=== PATIENT | female | born 1940 | race Caucasian/White ===

== ENCOUNTER 2019-08-12 18:46 | Inpatient (IN) | payer MEDICARE, MEDICAID ==
[~2019-08-12] VITALS: Ht 163.8 cm; Wt 65.0 kg
[~2019-08-12 18:46] MED LIST: ACET325T55 PO; ADV50250 IH; AMLO5TAB16 PO; ASPI1CPM9 PO; AZEL137S4 BOTHNARES; CARV-50 PO; LEVO100T46 PO; MONT10TA21 PO; MULT-785 PO; OXYB5TAB16 PO; PANT-47 PO; SIMV20TA5 PO; SUDAFED PE; ZOLP5TAB8 PO
[2019-08-12 19:32] LABS: BASOPHILS % (AUTO) 0.2 % (0-1); EOSINOPHILS # (AUTO) 0.1 X10'3 (0-0.9); EOSINOPHILS % (AUTO) 1.5 % (0-6); HEMATOCRIT 31.7 % (35.0-45.0); HEMOGLOBIN 10.4 g/dl (12.0-16.0); LYMPHOCYTES # (AUTO) 0.9 X10'3 (1.1-4.8); LYMPHOCYTES % (AUTO) 12.1 % (21-51); MEAN CORPUSCULAR HEMOGLOBIN 31.3 PG (27.0-31.0); MEAN CORPUSCULAR HGB CONC 32.8 g/dL (33.0-36.5); MEAN CORPUSCULAR VOLUME 95.3 FL (78-98); MEAN PLATELET VOLUME 8.5 FL (7.4-10.4); MONOCYTES # (AUTO) 0.6 X10'3 (0-0.9); MONOCYTES % (AUTO) 7.7 % (2-12); NEUTROPHILS # (AUTO) 6.1 X10'3 (1.8-7.7); NEUTROPHILS % (AUTO) 78.5 % (42-75); PLATELET COUNT 121 X10'3 (140-440); RED BLOOD COUNT 3.33 X10'6 (4.20-5.60); RED CELL DISTRIBUTION WIDTH 13.1 % (11.5-14.5); WHITE BLOOD COUNT 7.8 X10'3 (4.5-11.0)
[2019-08-12 19:50] LABS: ALANINE AMINOTRANSFERASE 21 U/L (12-78); ALBUMIN 3.2 G/DL (3.4-5.0); ALBUMIN/GLOBULIN RATIO 0.8 (1.1-1.5); ALKALINE PHOSPHATASE 69 IU/L (46-116); ANION GAP 16 (8-16); ASPARTATE AMINO TRANSFERASE 17 U/L (10-37); BILIRUBIN,TOTAL 0.3 MG/DL (0.1-1.0); BLOOD UREA NITROGEN 111 MG/DL (7-18); BUN/CREATININE RATIO 30.4 (6.6-38.0); CALCIUM 8.6 MG/DL (8.5-10.1); CHLORIDE 109 MMOL/L (99-107); CREATININE 3.65 MG/DL (0.40-0.90); GLUCOSE 103 MG/DL (70-104); POTASSIUM 4.2 MMOL/L (3.5-5.1); SODIUM 141 MMOL/L (135-145); TOTAL CARBON DIOXIDE 16.5 MMOL/L (24-32); eGFR 12 ML/MIN
[2019-08-12 20:17] LABS: CLARITY,URINE SLIGHTLY CLOUDY (Clear); COLOR,URINE YELLOW (Yellow); GLUCOSE, URINE NEGATIVE (Neg); KETONES,URINE NEGATIVE (Neg); LEUKOCYTE ESTERASE ,URINE SMALL (Neg); NITRITES, URINE NEGATIVE (Neg); OCCULT BLOOD,URINE NEGATIVE (Neg); PH,URINE 5.5 (4.8-8.0); PROTEIN,URINE NEGATIVE (Neg); UROBILINOGEN,URINE 0.2 E.U/dL (0.2-1.0)
[2019-08-12 20:18] LABS: UA COLLECTION TYPE STRAIGHT CATH
[2019-08-12] MEDS ORDERED: normal saline 1000ML IV soln IVB ONE (20:25)
[2019-08-12 20:29] LABS: BACTERIA,URINE 3+ /HPF (Neg); MUCUS STRANDS NONE SEEN /LPF (Neg); RBC,URINE NONE SEEN /HPF (0-2); SQUAMOUS EPITHELIAL CELL,UR FEW /LPF (FEW); WBC,URINE 30-50 /HPF (0-4)
[2019-08-12] MEDS ORDERED: SYN0.088T PO (22:21)
[2019-08-12] MEDS ORDERED: ASPI81TA52 PO (22:21)
[2019-08-12] MEDS ORDERED: FURO-149 PO (22:21)
[2019-08-12] MEDS ORDERED: LORA-512 PO (22:22)
[2019-08-12] MEDS ORDERED: LISI10TA PO (22:22)
[2019-08-12] MEDS ORDERED: DULA0.75 IM (22:22)
[2019-08-12] MEDS ORDERED: mag hydrox/Alum hydrox/simeth 30ml oral suspension PO PRN (22:25)
[2019-08-12] MEDS ORDERED: ondansetron/PF 4mg/2ml inj IV PRN (22:25)
[2019-08-12] MEDS ORDERED: magnesium hydroxide 30ml (MOM) UD suspension PO PRN (22:25)
[2019-08-12] MEDS ORDERED: acetaminophen 325mg tablet PO PRN ×2 (22:25→22:30)
[2019-08-12] MEDS ORDERED: MESSAGE TO PHARMACY PO ONE (22:30)
[2019-08-12] MEDS ORDERED: dextrose 50%-water 50ml dispensing syringe IV PRN ×2 (22:30)
[2019-08-12] MEDS ORDERED: insulin Lispro (HumaLOG) vial - multi-dose SQ SCH (22:30)
[2019-08-12] MEDS ORDERED: glucagon, human recombinant 1mg kit SUBCUT PRN (22:30)
[2019-08-12] MEDS ORDERED: dextrose ORAL solution 15 GM/59 ML bottle PO PRN ×2 (22:30)
[2019-08-12 22:47] LABS: HEMOGLOBIN A1C 5.4 % (4.5-6.2)
[2019-08-12 23:00] VITALS: BP 142/59
[2019-08-12] MEDS: normal saline 1000ml 1,000 ML IV SCH (23:00)
[2019-08-13] VITALS (7 sets, daily range): BP systolic 109–145; BP diastolic 46–60
[2019-08-13] MEDS: albuterol 2.5 MG/3 ML nebule NEB SCH ×4 (03:00→20:58)
[2019-08-13 05:49] LABS: BASOPHILS % (AUTO) 0.3 % (0-1); EOSINOPHILS # (AUTO) 0.2 X10'3 (0-0.9); EOSINOPHILS % (AUTO) 1.9 % (0-6); MONOCYTES # (AUTO) 0.6 X10'3 (0-0.9); RED CELL DISTRIBUTION WIDTH 13.4 % (11.5-14.5)
[2019-08-13 05:51] LABS: HEMATOCRIT 31.9 % (35.0-45.0); HEMOGLOBIN 10.6 g/dl (12.0-16.0); LYMPHOCYTES # (AUTO) 1.3 X10'3 (1.1-4.8); LYMPHOCYTES % (AUTO) 15.7 % (21-51); MEAN CORPUSCULAR HEMOGLOBIN 31.9 PG (27.0-31.0); MEAN CORPUSCULAR HGB CONC 33.3 g/dL (33.0-36.5); MEAN CORPUSCULAR VOLUME 95.8 FL (78-98); MEAN PLATELET VOLUME 9.2 FL (7.4-10.4); MONOCYTES % (AUTO) 6.9 % (2-12); NEUTROPHILS # (AUTO) 6.4 X10'3 (1.8-7.7); NEUTROPHILS % (AUTO) 75.2 % (42-75); PLATELET COUNT 106 X10'3 (140-440); RED BLOOD COUNT 3.33 X10'6 (4.20-5.60); WHITE BLOOD COUNT 8.6 X10'3 (4.5-11.0)
--- NOTE | 2019-08-13 06:45 | NUR ---
Patient in room PCU 3013. I have received report from JAK Ybarra and had the opportunity to ask questions and assume patient care.
[2019-08-13 06:49] LABS: ALANINE AMINOTRANSFERASE 20 U/L (12-78); ALBUMIN 2.9 G/DL (3.4-5.0); ALBUMIN/GLOBULIN RATIO 0.8 (1.1-1.5); ALKALINE PHOSPHATASE 66 IU/L (46-116); ANION GAP 18 (8-16); ASPARTATE AMINO TRANSFERASE 20 U/L (10-37); BILIRUBIN,TOTAL 0.3 MG/DL (0.1-1.0); BLOOD UREA NITROGEN 100 MG/DL (7-18); BUN/CREATININE RATIO 33.9 (6.6-38.0); CALCIUM 8.4 MG/DL (8.5-10.1); CHLORIDE 113 MMOL/L (99-107); CREATININE 2.95 MG/DL (0.40-0.90); GLUCOSE 99 MG/DL (70-104); POTASSIUM 4.5 MMOL/L (3.5-5.1); SODIUM 143 MMOL/L (135-145); TOTAL PROTEIN 6.5 G/DL (6.4-8.2); eGFR 15 ML/MIN
[2019-08-13 07:03] LABS: TOTAL CARBON DIOXIDE 12.1 MMOL/L (24-32)
--- NOTE | 2019-08-13 07:21 | NUR ---
*CRITICAL LAB* [facility] rm 3013A Co2 12.1 JAK Snider ext [phone] _ page to MONIQUE
[2019-08-13] MEDS: aspirin 81mg tablet.DR PO SCH (07:47)
[2019-08-13] MEDS: pantoprazole 40mg Tablet.DR PO SCH ×2 (07:47→20:23)
[2019-08-13] MEDS: oxybutynin 5mg tablet PO SCH ×2 (07:47→20:24)
[2019-08-13] MEDS: heparin, porcine 5000 units/ml vial SQ SCH ×2 (07:47→20:24)
[2019-08-13] MEDS: levoTHYROXINE 88mcg tablet PO SCH (07:47)
[2019-08-13] MEDS ORDERED: amLODIPine 5mg tablet PO SCH ×2 (08:00→10:00)
[2019-08-13] MEDS ORDERED: vancomycin 125mg/5ml ORAL solution 5ml UD bottle PO SCH (09:00)
[2019-08-13] MEDS: budesonide 0.5mg/2ml UD nebule IH SCH ×2 (09:53→20:57)
[2019-08-13] MEDS ORDERED: AMLO5TAB PO (09:57)
[2019-08-13] MEDS ORDERED: ADV50100 IH (09:58)
[2019-08-13] MEDS ORDERED: CYAN500T46 PO (12:22)
[2019-08-13] MEDS ORDERED: FERR325T28 PO (12:29)
[2019-08-13 13:03] LABS: C DIFF ANTIGEN NEGATIVE (NEGATIVE); C DIFF SPECIMEN=DIARRHEA? ACCEPTABLE; C DIFFICILE TOXINS A&B NEGATIVE (Neg)
--- NOTE | 2019-08-13 14:04 | NUR ---
[facility] Rm 3004 C-diff negative Agatha RN ext [phone] page to MONIQUE
[2019-08-13] MEDS: nystatin 15 GM powder TP SCH ×2 (14:42→20:23)
[2019-08-13] MEDS: levoFLOXACIN-Levaquin 500mg/D5 100 ML IV SCH (14:42)
[2019-08-13] MEDS ORDERED: metroNIDAZOLE 500mg tablet PO ONE (16:00)
--- NOTE | 2019-08-13 17:42 | NUR ---
RM 8012 Willie West do you want her to receive the Flagyl? Cdiff neg. Agatha ext #[phone] page to MONIQUE
--- NOTE | 2019-08-13 18:37 | NUR ---
Problems reprioritized. Patient report given, questions answered & plan of care reviewed with JAK Ybarra.
--- NOTE | 2019-08-13 18:40 | NUR ---
Dr Ybarra order a cdiff test and Flagyl 500 mg q 8hrs, order was put in and pharmacist called me and told me not to give the med until cidiff test was confirmed. She told me to hold flagyl and po vanco. I attempted to contact Dr Ybarra a couple of times to confirm if he wants the pt to have flagyl although the cidff is negative.
--- NOTE | 2019-08-13 18:49 | NUR ---
Patient in room PCU 3009. I have received report from Agatha BENEDICT, and had the opportunity to ask questions and assume patient care.
[2019-08-13] MEDS: metroNIDAZOLE 500mg tablet PO SCH (20:24)
[2019-08-13] MEDS ORDERED: insulin glargine (Lantus) pen - multi-dose SQ SCH (21:00)
[2019-08-13] MEDS ORDERED: atorvastatin 10mg tablet PO SCH (21:00)
[2019-08-13] MEDS: normal saline 1000ml 1,000 ML IV SCH (21:15)
[2019-08-14] MEDS: albuterol 2.5 MG/3 ML nebule NEB SCH ×2 (02:47→08:19)
[2019-08-14 03:00] VITALS: BP 101/60
[2019-08-14] MEDS: metroNIDAZOLE 500mg tablet PO SCH ×2 (04:26→08:07)
[2019-08-14 05:31] LABS: BASOPHILS % (AUTO) 0.4 % (0-1); EOSINOPHILS % (AUTO) 0.8 % (0-6); HEMATOCRIT 30.8 % (35.0-45.0); HEMOGLOBIN 10.2 g/dl (12.0-16.0); LYMPHOCYTES # (AUTO) 0.8 X10'3 (1.1-4.8); LYMPHOCYTES % (AUTO) 15.2 % (21-51); MEAN CORPUSCULAR HEMOGLOBIN 32.3 PG (27.0-31.0); MEAN CORPUSCULAR HGB CONC 33.2 g/dL (33.0-36.5); MEAN CORPUSCULAR VOLUME 97.2 FL (78-98); MEAN PLATELET VOLUME 8.9 FL (7.4-10.4); MONOCYTES # (AUTO) 0.6 X10'3 (0-0.9); MONOCYTES % (AUTO) 10.6 % (2-12); NEUTROPHILS # (AUTO) 4.1 X10'3 (1.8-7.7); PLATELET COUNT 93 X10'3 (140-440); RED BLOOD COUNT 3.17 X10'6 (4.20-5.60); RED CELL DISTRIBUTION WIDTH 13.5 % (11.5-14.5); WHITE BLOOD COUNT 5.6 X10'3 (4.5-11.0)
[2019-08-14 05:42] LABS: ALANINE AMINOTRANSFERASE 16 U/L (12-78); ALBUMIN 2.7 G/DL (3.4-5.0); ALBUMIN/GLOBULIN RATIO 0.8 (1.1-1.5); ALKALINE PHOSPHATASE 60 IU/L (46-116); ANION GAP 18 (8-16); ASPARTATE AMINO TRANSFERASE 20 U/L (10-37); BILIRUBIN,TOTAL 0.2 MG/DL (0.1-1.0); BLOOD UREA NITROGEN 82 MG/DL (7-18); BUN/CREATININE RATIO 33.2 (6.6-38.0); CALCIUM 7.9 MG/DL (8.5-10.1); CHLORIDE 117 MMOL/L (99-107); CREATININE 2.47 MG/DL (0.40-0.90); GLUCOSE 110 MG/DL (70-104); POTASSIUM 4.3 MMOL/L (3.5-5.1); SODIUM 147 MMOL/L (135-145); TOTAL PROTEIN 6.1 G/DL (6.4-8.2); eGFR 19 ML/MIN
[2019-08-14 06:00] VITALS: BP 126/44
[2019-08-14 06:23] LABS: TOTAL CARBON DIOXIDE 11.8 MMOL/L (24-32)
--- NOTE | 2019-08-14 06:53 | NUR ---
Patient in room PCU 3009. I have received report from Tate BENEDICT. and had the opportunity to ask questions and assume patient care.
--- NOTE | 2019-08-14 07:03 | NUR ---
Page to Dr. Ybarra Critical High CO2 level PAGER ID: [phone] MESSAGE: Pt. Brett Negro [id number] Critical High CO2 11.8 improved from CO2 on 08/13 and previous CO2 on 08/12.
[2019-08-14] MEDS: heparin, porcine 5000 units/ml vial SQ SCH (08:00)
[2019-08-14] MEDS: levoFLOXACIN-Levaquin 500mg/D5 100 ML IV SCH (08:05)
[2019-08-14] MEDS: oxybutynin 5mg tablet PO SCH (08:07)
[2019-08-14] MEDS: levoTHYROXINE 88mcg tablet PO SCH (08:07)
[2019-08-14] MEDS: aspirin 81mg tablet.DR PO SCH (08:07)
[2019-08-14] MEDS: pantoprazole 40mg Tablet.DR PO SCH (08:07)
[2019-08-14] MEDS ORDERED: METR500T PO (08:13)
[2019-08-14] MEDS ORDERED: CIPR250T4 PO (08:13)
[2019-08-14] MEDS: budesonide 0.5mg/2ml UD nebule IH SCH (08:19)
[2019-08-14] MEDS ORDERED: sodium bicarbonate (8.4%) inj. 100 MEQ in dextrose 5%-water 1,000 ML IV SCH (08:30)
[2019-08-14] MEDS: nystatin 15 GM powder TP SCH (08:41)
--- NOTE | 2019-08-14 08:42 | NUR ---
José Held: [facility]: Pt is Ambulatory and Platelets are 93.
== END 2019-08-14 12:15 | disposition home or self-care (01) | DRG 371 ==
LOC: ER 18:47 → PCU 3S 22:54
PROVIDERS: ADMIT Internal Medicine; ATTEND Internal Medicine
DX: A04.9 Bacterial intestinal infection, unspecified (principal); N17.0 Acute kidney failure with tubular necrosis; N17.9 Acute kidney failure, unspecified; N18.4 Chronic kidney disease, stage 4 (severe); E87.2 Acidosis; E86.0 Dehydration; D63.8 Anemia in other chronic diseases classified elsewhere; E03.9 Hypothyroidism, unspecified; E11.22 Type 2 diabetes mellitus with diabetic chronic kidney disease; E78.5 Hyperlipidemia, unspecified; I12.9 Hypertensive chronic kidney disease with stage 1 through stage 4 chronic kidney disease, or unspecified chronic kidney disease; I95.9 Hypotension, unspecified; R63.4 Abnormal weight loss; J44.9 Chronic obstructive pulmonary disease, unspecified; Z86.73 Personal history of transient ischemic attack (TIA), and cerebral infarction without residual deficits; Z79.899 Other long term (current) drug therapy; Z68.24 Body mass index [BMI] 24.0-24.9, adult; Z88.0 Allergy status to penicillin; Z88.2 Allergy status to sulfonamides
CPT/HCPCS: 36415; 80053; 81001; 82948; 83036; 85025; 85610; 87077; 87081; 87088; 87186; 87324; 87449; 94640; 94760; 96360; 99285; G0378; J1644; J1815; J1956; J3490; J7030; J7626

== ENCOUNTER 2020-03-27 18:23 | Emergency (ER) | payer MEDICARE, MEDICAID ==
[~2020-03-27] VITALS: Ht 162.6 cm; Wt 60.9 kg
[~2020-03-27 18:23] MED LIST changes: -ACET325T55 PO; +ADV50100 IH; -ADV50250 IH; +ALBU18HF2 INH; +AMLO5TAB PO; -AMLO5TAB16 PO; -ASPI1CPM9 PO; -AZEL137S4 BOTHNARES; -CARV-50 PO; +CYAN500T46 PO; +FERR325T28 PO; +FURO40TA4 PO; -LEVO100T46 PO; +LEVO500T2 PO; +LISI10TA PO; +LORA-512 PO; -MONT10TA21 PO; +SIMV-42 PO; -SIMV20TA5 PO; -SUDAFED PE; +SYN0.088T PO; -ZOLP5TAB8 PO
[2020-03-27 19:15] VITALS: BP 110/48
[2020-03-27] MEDS ORDERED: bacitracin 15gm ointment TP ONE (19:40)
== END 2020-03-27 21:11 | disposition home or self-care (01) ==
LOC: ER 18:24
DX: R60.0 Localized edema (principal); I12.9 Hypertensive chronic kidney disease with stage 1 through stage 4 chronic kidney disease, or unspecified chronic kidney disease; J44.9 Chronic obstructive pulmonary disease, unspecified; N18.9 Chronic kidney disease, unspecified; E11.22 Type 2 diabetes mellitus with diabetic chronic kidney disease; E03.9 Hypothyroidism, unspecified; Z88.0 Allergy status to penicillin; Z86.73 Personal history of transient ischemic attack (TIA), and cerebral infarction without residual deficits; Z88.2 Allergy status to sulfonamides; Z79.2 Long term (current) use of antibiotics; Z79.899 Other long term (current) drug therapy
CPT/HCPCS: 99284

== ENCOUNTER 2020-04-02 13:51 | Inpatient (IN) | payer MEDICARE, MEDICAID ==
[~2020-04-02] VITALS: Ht 149.9 cm; Wt 60.9 kg
--- NOTE | 2020-04-02 15:28 | NUR ---
pt has small dialysis graft/fistula noted to GEOFFREY, +thrill and +bruit.
[2020-04-02 16:03] LABS: BASOPHILS % (AUTO) 0.6 % (0-1); EOSINOPHILS # (AUTO) 0.1 X10'3 (0-0.9); EOSINOPHILS % (AUTO) 1.7 % (0-6); HEMATOCRIT 28.6 % (35.0-45.0); HEMOGLOBIN 9.4 g/dl (12.0-16.0); LYMPHOCYTES # (AUTO) 0.7 X10'3 (1.1-4.8); MEAN CORPUSCULAR HEMOGLOBIN 32.9 PG (27.0-31.0); MEAN CORPUSCULAR HGB CONC 32.7 g/dL (33.0-36.5); MEAN CORPUSCULAR VOLUME 100.6 FL (78-98); MONOCYTES # (AUTO) 0.5 X10'3 (0-0.9); MONOCYTES % (AUTO) 6.6 % (2-12); NEUTROPHILS # (AUTO) 5.7 X10'3 (1.8-7.7); NEUTROPHILS % (AUTO) 81.1 % (42-75); PLATELET COUNT 126 X10'3 (140-440); RED BLOOD COUNT 2.84 X10'6 (4.20-5.60); RED CELL DISTRIBUTION WIDTH 14.9 % (11.5-14.5)
[2020-04-02 16:09] LABS: ANION GAP 14 (8-16); BILIRUBIN,TOTAL 0.5 MG/DL (0.1-1.0); BLOOD UREA NITROGEN 106 MG/DL (7-18); BUN/CREATININE RATIO 31.7 (6.6-38.0); CALCIUM 8.6 MG/DL (8.5-10.1); CHLORIDE 104 MMOL/L (99-107); CREATININE 3.34 MG/DL (0.40-0.90); GLUCOSE 106 MG/DL (70-104); POTASSIUM 4.9 MMOL/L (3.5-5.1); SODIUM 138 MMOL/L (135-145); TOTAL CARBON DIOXIDE 20.2 MMOL/L (24-32); TOTAL PROTEIN 6.6 G/DL (6.4-8.2); eGFR 13 ML/MIN
[2020-04-02 16:10] LABS: ALANINE AMINOTRANSFERASE 14 U/L (12-78); ALBUMIN 3.3 G/DL (3.4-5.0); ALKALINE PHOSPHATASE 44 IU/L (46-116); ASPARTATE AMINO TRANSFERASE 16 U/L (10-37)
[2020-04-02 16:17] LABS: MAGNESIUM 2.1 MG/DL (1.5-2.4); PHOSPHORUS 6.7 MG/DL (2.3-4.5)
[2020-04-02] MEDS ORDERED: TRAZ-251 PO (17:10)
[2020-04-02] MEDS ORDERED: ASPI-611 PO (17:10)
[2020-04-02] MEDS ORDERED: ZAR5T PO (17:10)
[2020-04-02] MEDS ORDERED: LACT1CAP65 PO (17:10)
[2020-04-02] MEDS ORDERED: OMEP40CA13 PO (17:10)
[2020-04-02] MEDS ORDERED: IRON18TA PO (17:10)
[2020-04-02] MEDS ORDERED: acetaminophen 325mg tablet PO PRN ×2 (17:20)
[2020-04-02] MEDS ORDERED: ondansetron/PF 4mg/2ml inj IV PRN (17:20)
[2020-04-02] MEDS ORDERED: albuterol 2.5 MG/3 ML nebule NEB PRN (17:25)
--- NOTE | 2020-04-02 17:29 | NUR ---
patient is a hard stick,attempted to start piv to right wrist by 3 nurses-unsuccessful,Lashaun barrett RN made aware.
--- NOTE | 2020-04-02 17:40 | NUR ---
Dr. Angel aware that patient does not have piv at this time,Md ordered no iv for now.
--- NOTE | 2020-04-02 18:25 | NUR ---
per dr. sheffield at bedside, ok to send pt to the floor with no iv. multiple attempts without success and limited access areas.
--- NOTE | 2020-04-02 18:40 | NUR ---
Patient in room PCU 3017. I have received report from JAK Payne and had the opportunity to ask questions and assume patient care.
[2020-04-02 19:00] VITALS: BP 117/47
[2020-04-02] MEDS: traZODone 50mg tablet PO SCH (20:21)
[2020-04-02] MEDS: lactobacillus rhamnosus 10,000 MMU CELLS/CAPSULE PO SCH (20:21)
[2020-04-02] MEDS: budesonide 0.5mg/2ml UD nebule IH SCH (21:07)
[2020-04-02 22:00] VITALS: BP 97/67
[2020-04-03 02:00] VITALS: BP 116/51
[2020-04-03 06:00] VITALS: BP 102/49
[2020-04-03 06:00] LABS: BASOPHILS % (AUTO) 0.9 % (0-1); EOSINOPHILS # (AUTO) 0.2 X10'3 (0-0.9); EOSINOPHILS % (AUTO) 3.2 % (0-6); HEMATOCRIT 25.6 % (35.0-45.0); HEMOGLOBIN 8.4 g/dl (12.0-16.0); LYMPHOCYTES # (AUTO) 0.8 X10'3 (1.1-4.8); LYMPHOCYTES % (AUTO) 15.7 % (21-51); MEAN CORPUSCULAR HEMOGLOBIN 32.8 PG (27.0-31.0); MEAN CORPUSCULAR HGB CONC 32.8 g/dL (33.0-36.5); MEAN CORPUSCULAR VOLUME 100.1 FL (78-98); MEAN PLATELET VOLUME 10.2 FL (7.4-10.4); MONOCYTES # (AUTO) 0.4 X10'3 (0-0.9); MONOCYTES % (AUTO) 8.1 % (2-12); NEUTROPHILS # (AUTO) 3.7 X10'3 (1.8-7.7); NEUTROPHILS % (AUTO) 72.1 % (42-75); PLATELET COUNT 95 X10'3 (140-440); RED BLOOD COUNT 2.55 X10'6 (4.20-5.60); RED CELL DISTRIBUTION WIDTH 15.1 % (11.5-14.5); WHITE BLOOD COUNT 5.1 X10'3 (4.5-11.0)
[2020-04-03 06:15] LABS: ALANINE AMINOTRANSFERASE 14 U/L (12-78); ALBUMIN/GLOBULIN RATIO 1.1 (1.1-1.5); ALKALINE PHOSPHATASE 41 IU/L (46-116); ANION GAP 13 (8-16); ASPARTATE AMINO TRANSFERASE 14 U/L (10-37); BILIRUBIN,TOTAL 0.4 MG/DL (0.1-1.0); BLOOD UREA NITROGEN 108 MG/DL (7-18); BUN/CREATININE RATIO 30.9 (6.6-38.0); CALCIUM 8.1 MG/DL (8.5-10.1); CHLORIDE 107 MMOL/L (99-107); CREATININE 3.49 MG/DL (0.40-0.90); GLUCOSE 127 MG/DL (70-104); MAGNESIUM 2.1 MG/DL (1.5-2.4); PHOSPHORUS 7.2 MG/DL (2.3-4.5); POTASSIUM 4.4 MMOL/L (3.5-5.1); SODIUM 141 MMOL/L (135-145); TOTAL PROTEIN 5.8 G/DL (6.4-8.2); eGFR 13 ML/MIN
--- NOTE | 2020-04-03 06:30 | NUR ---
Patient in room PCU 3017. I have received report from ROSINA RAMSEY and had the opportunity to ask questions and assume patient care.
--- NOTE | 2020-04-03 06:47 | NUR ---
Problems reprioritized. Patient report given, questions answered & plan of care reviewed with JAK Palafox.
[2020-04-03] MEDS: pantoprazole 40mg Tablet.DR PO SCH (08:52)
[2020-04-03] MEDS: ferrous sulfate 325mg tablet PO SCH (08:53)
[2020-04-03] MEDS: aspirin 81mg tablet.DR PO SCH (08:53)
[2020-04-03] MEDS: lactobacillus rhamnosus 10,000 MMU CELLS/CAPSULE PO SCH ×2 (08:53→20:48)
[2020-04-03] MEDS: furosemide 40mg tablet PO SCH (08:54)
[2020-04-03] MEDS: multivitamins, therapeutics tablet PO SCH (08:54)
[2020-04-03] MEDS: amLODIPine 5mg tablet PO SCH (08:54)
[2020-04-03] MEDS: levoTHYROXINE 88mcg tablet PO SCH (08:54)
[2020-04-03] MEDS: cyanocobalamin 500mcg tablet PO SCH (08:55)
[2020-04-03] MEDS: metolazone 2.5mg tablet PO SCH (08:55)
[2020-04-03] MEDS: lisinopril 10 MG tablet PO SCH (08:56)
[2020-04-03] MEDS ORDERED: FLU VACC QS2019-20 36MOS UP/PF 60 MCG/0.5 ML SYRINGE IMVAC ONE (10:00)
[2020-04-03] MEDS ORDERED: normal saline 1000ml 100 ML IV PRN (10:29)
[2020-04-03] MEDS ORDERED: normal saline 1000ml 250 ML IV PRN (10:29)
[2020-04-03] MEDS ORDERED: LIDOcaine 1% (10mg/ml) 2ml vial SQ ONE (10:30)
[2020-04-03] MEDS ORDERED: epoetin 20,000 units/ml inj IV ONE (10:30)
[2020-04-03] MEDS: budesonide 0.5mg/2ml UD nebule IH SCH ×2 (10:51→19:57)
[2020-04-03 11:00] VITALS: BP 95/37
--- NOTE | 2020-04-03 12:57 | NUR ---
Malnutrition consult: Pt admit w/ increased BLE swelling reported 16 pound wt gain hx CKD and needing emergent HD per MD. Pt has no significant weakness noted, BLE 2+ pitting edema though to change given fluid status/HD, PO 50% first meal this AM w/ 69kg chair scale wt this admit. Pt prior wts all pt stated and current wt likely higher than actual dry wt given positive fluid status. BMI 31 given current wt w/ pt stated wts fluctuating 61-65kg prior admits past 6 months. At this time pt does not meet minimum malnutrition criteria; will continue to monitor. Addendum: 04/03/20 at [address] Amended: Links added.
[2020-04-03 15:00] VITALS: BP 95/37
[2020-04-03 18:00] VITALS: BP 118/49
--- NOTE | 2020-04-03 18:43 | NUR ---
Patient in room PCU 3017. I have received report from Javy BENEDICT and had the opportunity to ask questions and assume patient care.
--- NOTE | 2020-04-03 18:43 | NUR ---
Problems reprioritized. Patient report given, questions answered & plan of care reviewed with JAK ALLAN.
[2020-04-03] MEDS: traZODone 50mg tablet PO SCH (20:48)
[2020-04-03 22:00] VITALS: BP 105/43
[2020-04-04] VITALS (9 sets, daily range): BP systolic 88–112; BP diastolic 42–62
[2020-04-04 05:56] LABS: HEMOGLOBIN 8.7 g/dl (12.0-16.0); PLATELET COUNT 110 X10'3 (140-440); WHITE BLOOD COUNT 4.4 X10'3 (4.5-11.0)
[2020-04-04 05:59] LABS: BASOPHILS % (AUTO) 0.8 % (0-1); EOSINOPHILS # (AUTO) 0.2 X10'3 (0-0.9); HEMATOCRIT 26.3 % (35.0-45.0); LYMPHOCYTES # (AUTO) 0.9 X10'3 (1.1-4.8); LYMPHOCYTES % (AUTO) 19.7 % (21-51); MEAN CORPUSCULAR HEMOGLOBIN 33.3 PG (27.0-31.0); MEAN CORPUSCULAR VOLUME 100.7 FL (78-98); MEAN PLATELET VOLUME 9.6 FL (7.4-10.4); MONOCYTES # (AUTO) 0.4 X10'3 (0-0.9); NEUTROPHILS % (AUTO) 67.5 % (42-75); RED BLOOD COUNT 2.61 X10'6 (4.20-5.60); RED CELL DISTRIBUTION WIDTH 14.9 % (11.5-14.5)
--- NOTE | 2020-04-04 06:10 | NUR ---
Patient in room PCU 3017. I have received report from JAK Lal and had the opportunity to ask questions and assume patient care.
--- NOTE | 2020-04-04 06:12 | NUR ---
Problems reprioritized. Patient report given, questions answered & plan of care reviewed with Jo BENEDICT.
[2020-04-04 06:21] LABS: ALANINE AMINOTRANSFERASE 12 U/L (12-78); ALBUMIN 2.9 G/DL (3.4-5.0); ALKALINE PHOSPHATASE 37 IU/L (46-116); ANION GAP 13 (8-16); ASPARTATE AMINO TRANSFERASE 12 U/L (10-37); BILIRUBIN,TOTAL 0.4 MG/DL (0.1-1.0); BLOOD UREA NITROGEN 108 MG/DL (7-18); CALCIUM 8.1 MG/DL (8.5-10.1); CHLORIDE 109 MMOL/L (99-107); CREATININE 3.38 MG/DL (0.40-0.90); GLUCOSE 89 MG/DL (70-104); MAGNESIUM 2.2 MG/DL (1.5-2.4); PHOSPHORUS 6.9 MG/DL (2.3-4.5); POTASSIUM 4.2 MMOL/L (3.5-5.1); SODIUM 143 MMOL/L (135-145); TOTAL CARBON DIOXIDE 21.2 MMOL/L (24-32); TOTAL PROTEIN 5.9 G/DL (6.4-8.2); eGFR 13 ML/MIN
[2020-04-04] MEDS: lisinopril 10 MG tablet PO SCH (08:00)
[2020-04-04] MEDS ORDERED: normal saline 1000ml 100 ML IV PRN (08:00)
[2020-04-04] MEDS ORDERED: albumin (human) 25% 100ml IV 100 ML IV PRN (08:00)
[2020-04-04] MEDS: amLODIPine 5mg tablet PO SCH (08:00)
[2020-04-04] MEDS ORDERED: nystatin 15 GM ointment TP SCH (08:00)
[2020-04-04] MEDS ORDERED: LIDOcaine 1% (10mg/ml) 2ml vial SQ ONE (08:00)
[2020-04-04] MEDS: aspirin 81mg tablet.DR PO SCH (08:00)
[2020-04-04] MEDS ORDERED: heparin 1,000 units/ml 10ml inj IV ONE ×4 (08:00→10:20)
[2020-04-04] MEDS ORDERED: epoetin 20,000 units/ml inj IV ONE ×2 (08:00)
[2020-04-04] MEDS: furosemide 40mg tablet PO SCH (08:00)
[2020-04-04] MEDS ORDERED: heparin 1,000 units/ml 10ml inj HE ONE ×5 (08:00→10:20)
[2020-04-04] MEDS ORDERED: normal saline 1000ml 250 ML IV PRN ×3 (08:00)
[2020-04-04] MEDS: lactobacillus rhamnosus 10,000 MMU CELLS/CAPSULE PO SCH ×2 (08:13→20:27)
[2020-04-04] MEDS: levoTHYROXINE 88mcg tablet PO SCH (08:14)
[2020-04-04] MEDS: pantoprazole 40mg Tablet.DR PO SCH (08:15)
[2020-04-04] MEDS: multivitamins, therapeutics tablet PO SCH (08:15)
[2020-04-04] MEDS: ferrous sulfate 325mg tablet PO SCH (08:16)
[2020-04-04] MEDS: cyanocobalamin 500mcg tablet PO SCH (08:19)
[2020-04-04] MEDS: metolazone 2.5mg tablet PO SCH (08:45)
[2020-04-04] MEDS: budesonide 0.5mg/2ml UD nebule IH SCH ×2 (08:52→19:54)
[2020-04-04] MEDS ORDERED: LIDOcaine 1%/PF 5ML 10 MG/ML VIAL ONE (10:56)
[2020-04-04] MEDS ORDERED: fentaNYL/PF 50MCG/1 ML 2ML syringe ONE (10:56)
[2020-04-04] MEDS ORDERED: heparin 1,000unit/ml 10ml vial 10 ML ONE (10:56)
[2020-04-04] MEDS ORDERED: midazolam 2 mg/2 ml injection ONE (10:56)
--- NOTE | 2020-04-04 11:05 | NUR ---
Patient left with staff from [facility] to go have TDC placed. Patient alert and oriented and in stable condition when she left.
--- NOTE | 2020-04-04 11:45 | NUR ---
Patient came back to PCU on tam bed. I received report from Lety Riggs RN that patient received only local anesthetic during the placement of the TDC to the right chest. Patient was alert and oriented when she arrived back to PCU. I noted placement of the TDC. It was intact and no problems.
--- NOTE | 2020-04-04 18:30 | NUR ---
Problems reprioritized. Patient report given, questions answered & plan of care reviewed with JAK Slaughter. During bedside report I flushed the patient's new 20G PIV that was placed by the PICC nurse this morning. The patient had complained that it was bothering her. When I flushed it during bedside report the patient stated that it was not causing her any pain and it flushed adequately.
--- NOTE | 2020-04-04 18:30 | NUR ---
Patient in room PCU 3017. I have received report from Stephany BENEDICT and had the opportunity to ask questions and assume patient care.
[2020-04-04] MEDS: nystatin 15 GM powder TP SCH (20:27)
[2020-04-04] MEDS: traZODone 50mg tablet PO SCH (20:27)
[2020-04-05 02:00] VITALS: BP 99/49
--- NOTE | 2020-04-05 05:19 | NUR ---
[place] documentation: I have reviewed and agree with all interventions, meds given, assessments performed and documented by Winsome BENEDICT.
[2020-04-05 06:00] VITALS: BP 119/86
--- NOTE | 2020-04-05 06:00 | NUR ---
Problems reprioritized. Patient report given, questions answered & plan of care reviewed with Crystal BENEDICT [].
--- NOTE | 2020-04-05 06:15 | NUR ---
Problems reprioritized. Patient report given, questions answered & plan of care reviewed with Crystal BENEDICT.
--- NOTE | 2020-04-05 06:29 | NUR ---
Patient in room PCU 3017. I have received report from JAK Slaughter and had the opportunity to ask questions and assume patient care.
[2020-04-05 06:41] LABS: BASOPHILS % (AUTO) 0.6 % (0-1); EOSINOPHILS # (AUTO) 0.1 X10'3 (0-0.9); EOSINOPHILS % (AUTO) 1.8 % (0-6); HEMATOCRIT 29.6 % (35.0-45.0); HEMOGLOBIN 9.6 g/dl (12.0-16.0); LYMPHOCYTES # (AUTO) 0.7 X10'3 (1.1-4.8); LYMPHOCYTES % (AUTO) 13.9 % (21-51); MEAN CORPUSCULAR HEMOGLOBIN 32.2 PG (27.0-31.0); MEAN CORPUSCULAR HGB CONC 32.4 g/dL (33.0-36.5); MEAN CORPUSCULAR VOLUME 99.4 FL (78-98); MEAN PLATELET VOLUME 8.9 FL (7.4-10.4); MONOCYTES # (AUTO) 0.5 X10'3 (0-0.9); MONOCYTES % (AUTO) 9.8 % (2-12); NEUTROPHILS # (AUTO) 3.9 X10'3 (1.8-7.7); NEUTROPHILS % (AUTO) 73.9 % (42-75); PLATELET COUNT 122 X10'3 (140-440); RED BLOOD COUNT 2.98 X10'6 (4.20-5.60); RED CELL DISTRIBUTION WIDTH 14.9 % (11.5-14.5); WHITE BLOOD COUNT 5.3 X10'3 (4.5-11.0)
[2020-04-05 06:51] LABS: ALANINE AMINOTRANSFERASE 11 U/L (12-78); ALBUMIN 3.1 G/DL (3.4-5.0); ALKALINE PHOSPHATASE 43 IU/L (46-116); ANION GAP 8 (8-16); ASPARTATE AMINO TRANSFERASE 14 U/L (10-37); BILIRUBIN,TOTAL 0.6 MG/DL (0.1-1.0); BLOOD UREA NITROGEN 60 MG/DL (7-18); BUN/CREATININE RATIO 25.8 (6.6-38.0); CALCIUM 8.2 MG/DL (8.5-10.1); CHLORIDE 107 MMOL/L (99-107); CREATININE 2.33 MG/DL (0.40-0.90); GLUCOSE 82 MG/DL (70-104); PHOSPHORUS 4.4 MG/DL (2.3-4.5); POTASSIUM 3.7 MMOL/L (3.5-5.1); SODIUM 142 MMOL/L (135-145); TOTAL CARBON DIOXIDE 27.5 MMOL/L (24-32); TOTAL PROTEIN 6.2 G/DL (6.4-8.2); eGFR 20 ML/MIN
[2020-04-05] MEDS: budesonide 0.5mg/2ml UD nebule IH SCH ×2 (07:14→19:40)
[2020-04-05] MEDS: pantoprazole 40mg Tablet.DR PO SCH (07:57)
[2020-04-05] MEDS: ferrous sulfate 325mg tablet PO SCH (07:57)
[2020-04-05] MEDS: aspirin 81mg tablet.DR PO SCH (07:57)
[2020-04-05] MEDS: metolazone 2.5mg tablet PO SCH (07:57)
[2020-04-05] MEDS: amLODIPine 5mg tablet PO SCH (07:57)
[2020-04-05] MEDS: cyanocobalamin 500mcg tablet PO SCH (07:57)
[2020-04-05] MEDS: furosemide 40mg tablet PO SCH (07:57)
[2020-04-05] MEDS: levoTHYROXINE 88mcg tablet PO SCH (07:57)
[2020-04-05] MEDS: lisinopril 10 MG tablet PO SCH (07:58)
[2020-04-05] MEDS: multivitamins, therapeutics tablet PO SCH (07:58)
[2020-04-05] MEDS ORDERED: epoetin 20,000 units/ml inj IV ONE (08:00)
[2020-04-05] MEDS ORDERED: normal saline 1000ml 250 ML IV PRN (08:00)
[2020-04-05] MEDS ORDERED: heparin 1,000 units/ml 10ml inj HE ONE ×2 (08:00)
[2020-04-05] MEDS ORDERED: heparin 1,000unit/ml 10ml vial 10 ML IV ONE (08:00)
[2020-04-05] MEDS: lactobacillus rhamnosus 10,000 MMU CELLS/CAPSULE PO SCH ×2 (08:01→20:22)
[2020-04-05 08:09] LABS: HBSAG SCREEN Negative (Negative)
[2020-04-05] MEDS: nystatin 15 GM powder TP SCH ×3 (11:17→20:24)
[2020-04-05 15:00] VITALS: BP 104/40
--- NOTE | 2020-04-05 18:31 | NUR ---
Patient in room PCU 3017. I have received report from Crystal BENEDICT and had the opportunity to ask questions and assume patient care.
[2020-04-05 19:00] VITALS: BP 109/48
[2020-04-05] MEDS: traZODone 50mg tablet PO SCH (20:22)
[2020-04-05 22:37] VITALS: BP 96/40
[2020-04-06 06:00] VITALS: BP 87/42
--- NOTE | 2020-04-06 06:22 | NUR ---
Problems reprioritized. Patient report given, questions answered & plan of care reviewed with Doretha AND ALFREDO rns.
--- NOTE | 2020-04-06 06:34 | NUR ---
Patient in room PCU 3017. I have received report from JAK Slaughter and had the opportunity to ask questions and assume patient care. Pt resting comfortably.
[2020-04-06 06:35] LABS: BASOPHILS % (AUTO) 0.8 % (0-1); EOSINOPHILS # (AUTO) 0.1 X10'3 (0-0.9); HEMATOCRIT 29.4 % (35.0-45.0); HEMOGLOBIN 9.6 g/dl (12.0-16.0); LYMPHOCYTES # (AUTO) 1.1 X10'3 (1.1-4.8); LYMPHOCYTES % (AUTO) 18.9 % (21-51); MEAN CORPUSCULAR HEMOGLOBIN 32.3 PG (27.0-31.0); MEAN CORPUSCULAR HGB CONC 32.4 g/dL (33.0-36.5); MEAN CORPUSCULAR VOLUME 99.6 FL (78-98); MEAN PLATELET VOLUME 9.5 FL (7.4-10.4); MONOCYTES # (AUTO) 0.7 X10'3 (0-0.9); MONOCYTES % (AUTO) 11.4 % (2-12); NEUTROPHILS # (AUTO) 3.9 X10'3 (1.8-7.7); NEUTROPHILS % (AUTO) 66.9 % (42-75); PLATELET COUNT 118 X10'3 (140-440); RED BLOOD COUNT 2.96 X10'6 (4.20-5.60); RED CELL DISTRIBUTION WIDTH 14.8 % (11.5-14.5); WHITE BLOOD COUNT 5.8 X10'3 (4.5-11.0)
--- NOTE | 2020-04-06 06:35 | NUR ---
Patient in room U 3017. I have received report from Loan BENEDICT and Winsome BENEDICT and had the opportunity to ask questions and assume patient care. Addendum: 04/06/20 at 0641 by Kimberly Mejia RN report from Kasandra BENEDICT
[2020-04-06 06:58] LABS: ALANINE AMINOTRANSFERASE 11 U/L (12-78); ALBUMIN/GLOBULIN RATIO 0.9 (1.1-1.5); ALKALINE PHOSPHATASE 43 IU/L (46-116); ANION GAP 11 (8-16); ASPARTATE AMINO TRANSFERASE 12 U/L (10-37); BILIRUBIN,TOTAL 0.7 MG/DL (0.1-1.0); BLOOD UREA NITROGEN 30 MG/DL (7-18); BUN/CREATININE RATIO 16.5 (6.6-38.0); CALCIUM 8.4 MG/DL (8.5-10.1); CHLORIDE 105 MMOL/L (99-107); CREATININE 1.82 MG/DL (0.40-0.90); GLUCOSE 80 MG/DL (70-104); MAGNESIUM 1.9 MG/DL (1.5-2.4); PHOSPHORUS 3.3 MG/DL (2.3-4.5); POTASSIUM 3.6 MMOL/L (3.5-5.1); SODIUM 142 MMOL/L (135-145); TOTAL CARBON DIOXIDE 26.5 MMOL/L (24-32); TOTAL PROTEIN 6.2 G/DL (6.4-8.2); eGFR 27 ML/MIN
[2020-04-06] MEDS ORDERED: epoetin 20,000 units/ml inj IV ONE (08:00)
[2020-04-06] MEDS ORDERED: normal saline 1000ml 250 ML IV PRN (08:00)
[2020-04-06] MEDS: furosemide 40mg tablet PO SCH (08:00)
[2020-04-06] MEDS ORDERED: heparin 1,000 units/ml 10ml inj HE ONE ×2 (08:00)
[2020-04-06] MEDS: lisinopril 10 MG tablet PO SCH (08:00)
[2020-04-06] MEDS: metolazone 2.5mg tablet PO SCH (08:00)
[2020-04-06] MEDS ORDERED: heparin 1,000unit/ml 10ml vial 10 ML IV ONE (08:00)
[2020-04-06] MEDS: budesonide 0.5mg/2ml UD nebule IH SCH ×2 (08:21→19:06)
[2020-04-06] MEDS: aspirin 81mg tablet.DR PO SCH (08:48)
[2020-04-06] MEDS: multivitamins, therapeutics tablet PO SCH (08:48)
[2020-04-06] MEDS: cyanocobalamin 500mcg tablet PO SCH (08:48)
[2020-04-06] MEDS: levoTHYROXINE 88mcg tablet PO SCH (08:48)
[2020-04-06] MEDS: lactobacillus rhamnosus 10,000 MMU CELLS/CAPSULE PO SCH (08:48)
[2020-04-06] MEDS: amLODIPine 5mg tablet PO SCH (08:56)
[2020-04-06] MEDS: ferrous sulfate 325mg tablet PO SCH (08:56)
[2020-04-06] MEDS: nystatin 15 GM powder TP SCH ×2 (09:01→13:37)
[2020-04-06] MEDS: pantoprazole 40mg Tablet.DR PO SCH (09:05)
[2020-04-06 11:00] VITALS: BP 95/30
[2020-04-06 11:10] LABS: HEP B CORE AB, TOT Negative (Negative)
[2020-04-06] MEDS ORDERED: FOLI0.8C PO (13:40)
[2020-04-06] MEDS ORDERED: FOLI0.8T19 PO (13:40)
--- NOTE | 2020-04-06 14:11 | NUR ---
Initial: Pt admit w/ ESRD, fluid overload s/p second HD today per . Pt PO increased from admit initial 25-50% renal diet first day now 65-75% avg meals. LBM 04/04. MCV 99.6 receiving B12 and MVI. Will continue to monitor for additional protein needs on HD. Rec: 1. continue renal diet 2. monitor for ONS needs 3. bowel regularity 4. wts w/ HD Addendum: 04/06/20 at [address] Amended: Links added.
[2020-04-06 15:00] VITALS: BP 108/49
--- NOTE | 2020-04-06 18:39 | NUR ---
[place]ee documentation: I have reviewed and agree with all interventions, assessments performed and documented by JAK Harris.
--- NOTE | 2020-04-06 18:40 | NUR ---
[place] Medication Administration: For this medication-pass time frame, all medication were reviewed, dispensed, administered and documented per hospital policy by JAK Harris.
--- NOTE | 2020-04-06 18:40 | NUR ---
Problems reprioritized. Patient report given, questions answered & plan of care reviewed with JAK Sanches. Pt getting dialysis, all needs met at this time.
--- NOTE | 2020-04-06 20:45 | NUR ---
Patient discharge in stable condition, VSS within normal range, A&O x3, removed IV with catheter intact, tele removed, personal belongings with patient Patient off unit via wheelchair accompanied with caregiver, Malika. Care relinquish to caregiver.
--- NOTE | 2020-04-07 15:13 | NUR ---
Case Management DC follow up: Spoke to pt & Pt daughter via telephone. s/p: ESRD, fluid overload, HD. [facility] HD MWF. First appt 04/08/20 1400. Reports: resting, color good, breathing and feeling so much better. Denies: acute SOB, resp distress, acute/persistent CP, HOPPER, blurry vision, N/V, emergent general pain, abd tenderness or distention, vertigo, syncope, fever, unexplained bruising, bleeding. Port site a little bruising, but no s/s infection noted. Verbalizes understanding of s/s that would warrant -/ER visit for further evaluation. Verbalizes understanding of current/new Rx & why prescribed; Still waiting to pickle pumper new Rx, Fe 0.8 mg, Nephro-subhash. taking current as ordered, no ase noted r/t polypharmacy. Acknowledges need to follow-up/keep appts w/PCP/Manda at [facility]/[place]/possible referral to vacuum cleaner mechanic per pt. specialists/Jeanne. Questions answered, needs met at [place]. No further questions at this time.
== END 2020-04-06 21:00 | disposition home or self-care (01) | DRG 673 ==
LOC: ER 13:51 → ED HOLD 17:20 → PCU 3S 17:44 → EDBEDREQTM 18:44 → CMPBEDREQ 04-04 19:48
PROVIDERS: ADMIT Nurse Practitioner Family; ATTEND Nurse Practitioner Family
PROC: 0JH63XZ Insertion of Tunneled Vascular Access Device into Chest Subcutaneous Tissue and Fascia, Percutaneous Approach (ICD-10-PCS; principal; 2020-04-04)
PROC: 02HV33Z Insertion of Infusion Device into Superior Vena Cava, Percutaneous Approach (ICD-10-PCS; 2020-04-04)
PROC: B548ZZA Ultrasonography of Superior Vena Cava, Guidance (ICD-10-PCS; 2020-04-04)
PROC: 5A1D70Z Performance of Urinary Filtration, Intermittent, Less than 6 Hours Per Day (ICD-10-PCS; 2020-04-04)
PROC: 5A1D70Z Performance of Urinary Filtration, Intermittent, Less than 6 Hours Per Day (ICD-10-PCS; 2020-04-05)
PROC: 5A1D70Z Performance of Urinary Filtration, Intermittent, Less than 6 Hours Per Day (ICD-10-PCS; 2020-04-06)
DX: I12.0 Hypertensive chronic kidney disease with stage 5 chronic kidney disease or end stage renal disease (principal); N18.6 End stage renal disease; J44.9 Chronic obstructive pulmonary disease, unspecified; E11.22 Type 2 diabetes mellitus with diabetic chronic kidney disease; E11.40 Type 2 diabetes mellitus with diabetic neuropathy, unspecified; E03.9 Hypothyroidism, unspecified; Z99.2 Dependence on renal dialysis; Z88.2 Allergy status to sulfonamides; Z88.0 Allergy status to penicillin; Z86.73 Personal history of transient ischemic attack (TIA), and cerebral infarction without residual deficits; Z79.51 Long term (current) use of inhaled steroids
CPT/HCPCS: 36415; 36558; 71045; 76937; 77001; 80053; 82948; 83735; 83880; 84100; 84443; 84484; 85025; 86704; 86706; 87081; 87340; 93005; 94640; 94760; 99285; C1750; C1769; C1894; G0378; J1644; J2150; J2250; J3010; J7626; Q2037; Q4081